=== PATIENT | male | born 1990 ===

== ENCOUNTER → 2017-03-28 | Outpatient (CLI) | payer OTHER ==
--- NOTE | 2017-03-28 13:02 | DIAGNOSTIC IMAGING REPORT ---
CHEST 2 VIEWS ROUTINE CLINICAL HISTORY: WHEEZING, PERSISTENT COUGH COMPARISON STUDY: No previous studies for comparison. FINDINGS: The bones soft tissues and hemidiaphragms are normal. The cardiomediastinal silhouette is normal. The lungs are clear. The pulmonary vasculature is normal. IMPRESSION: Negative chest. Electronically signed by: Florentino Shankar M.D. 03/28/2017 1:01 PM Dictated Date/Time: 03/28/2017 12:55 PM
== END | disposition home or self-care (01) ==
LOC: C.RAD1850 12:34
PROVIDERS: ATTEND Physician Assistant
DX: R05 Cough (principal); R06.2 Wheezing